=== PATIENT | male | born 1950 | race Caucasian/White ===

== ENCOUNTER 2017-11-06 09:20 | Inpatient (IN) | payer MEDICARE, OTHER ==
[2017-11-06] MEDS: BUPIVACAINE 0.5% (SDV) 30 ML, morphine SULFATE (PF) 8 MG, EPINEPHrine 0.3 MG, KETOROLAC... IRR (09:00)
[2017-11-06] MEDS ORDERED: CEFAZOLIN 1 GM INJ (09:52)
[2017-11-06] MEDS ORDERED: ROPIVACAINE 0.5 % 30 ML VIAL (09:52)
[2017-11-06] MEDS ORDERED: PROPOFOL 20 ML (09:52)
[2017-11-06] MEDS ORDERED: LIDOCAINE 2% (SDV) 5 ML INJ (09:52)
[2017-11-06] MEDS ORDERED: MIDAZOLAM 1 MG/ML 2 ML INJ ×2 (09:52→14:55)
[2017-11-06] MEDS: GABAPENTIN 300 MG CAP PO ×2 (10:32→21:46)
[2017-11-06] MEDS: DEXAMETHASONE 1 MG TAB PO (10:32)
[2017-11-06] MEDS: traMADol 50 MG TAB PO (10:32)
[2017-11-06] MEDS: LACTATED RINGER'S 1,000 ML IV* (10:33)
[2017-11-06] MEDS: VANCOMYCIN 1 GM (PMX) 250 ML IVPB (10:33)
[2017-11-06] MEDS ORDERED: TOBRAMYCIN 1.2 GM POWDER (11:14)
[2017-11-06] MEDS: BUPIVACAINE 0.5%/EPI (SDV) 30 ML INJ (11:14)
[2017-11-06] MEDS: THROMBIN 5000 UNIT VIAL (11:14)
[2017-11-06] MEDS: POLYMYXIN/BACITRACIN 1L IRRIG (11:14)
[2017-11-06] MEDS: CA CHLORIDE 10% 10 ML SYRINGE (11:15)
[2017-11-06] MEDS ORDERED: HYDROmorphONE 1 MG/5 ML IV SYRINGE IV ×3 (12:00)
[2017-11-06] MEDS ORDERED: EPHEDrine SULFATE 50 MG/5 ML SYG IV (12:00)
[2017-11-06] MEDS ORDERED: MEPERIDINE 25 MG INJ IV (12:00)
[2017-11-06] MEDS ORDERED: OXYCODONE/ACETAMINOPHEN (5/325) TAB PO ×3 (12:00→14:30)
[2017-11-06] MEDS ORDERED: LABETALOL HCL 20MG INJ IV (12:00)
[2017-11-06] MEDS ORDERED: ONDANSETRON 4 MG INJ IV ×2 (12:00→14:30)
[2017-11-06] MEDS ORDERED: hydrALAzine 20 MG INJ IV (12:00)
[2017-11-06] MEDS: TRANEXAMIC ACID 1,000 MG in DEXTROSE 5% 100 ML IVPB (13:00)
[2017-11-06] MEDS: TRANEXAMIC ACID 1,000 MG in DEXTROSE 5% 100 ML IV ×2 (14:00→15:11)
[2017-11-06] MEDS ORDERED: MAGNESIUM HYDROXIDE 30ML CUP PO (14:30)
[2017-11-06] MEDS ORDERED: KETOROLAC 15 MG INJ IV (14:30)
[2017-11-06] MEDS ORDERED: ACETAMINOPHEN 500 MG TAB PO (14:30)
[2017-11-06] MEDS ORDERED: morphine 2 MG INJ IV (14:30)
[2017-11-06] MEDS ORDERED: ZOLPIDEM 5 MG TAB PO (14:30)
[2017-11-06] MEDS ORDERED: DIPHENHYDRAMINE 50 MG INJ IV (14:30)
[2017-11-06] MEDS ORDERED: LORAZEPAM 2 MG INJ (15:02)
[2017-11-06 15:07] LABS: ADD MAN DIFF? NO
[2017-11-06 15:08] LABS: WHITE BLOOD COUNT 7.1 10^3/ul (4.8-10.8)
[2017-11-06 15:08] LABS: BASOPHILS % 0.3 % (0.0-2.0); EOSINOPHILS % 0.4 % (0.0-7.0); HEMATOCRIT 38.5 % (42.0-52.0); HEMOGLOBIN 12.6 g/dl (14.0-18.0); LYMPHOCYTES # 0.8 10^3/ul (0.8-2.9); LYMPHOCYTES % 11.8 % (15.0-51.0); MEAN CORPUSCULAR HEMOGLOBIN 28.4 pg (29.0-33.0); MEAN CORPUSCULAR HGB CONC 32.7 g/dl (32.0-37.0); MEAN CORPUSCULAR VOLUME 86.9 fl (82.0-101.0); MEAN PLATELET VOLUME 9.8 fl (7.4-10.4); MONOCYTE # 0.3 10^3/ul (0.3-0.9); MONOCYTES % 4.6 % (0.0-11.0); NEUTROPHIL # 5.9 10^3/ul (1.6-7.5); NEUTROPHILS % 82.1 % (39.0-77.0); PLATELET COUNT 209 10^3/UL (140-415); RED BLOOD COUNT 4.43 10^6/ul (4.70-6.10); RED CELL DISTRIBUTION WIDTH 13.4 % (11.5-14.5)
[2017-11-06] MEDS: DIPHENHYDRAMINE 50 MG INJ IV (15:11)
[2017-11-06] MEDS: MIDAZOLAM 1 MG/ML 2 ML INJ IV (15:14)
[2017-11-06] MEDS ORDERED: LORAZEPAM 2 MG INJ IV (15:30)
[2017-11-06] MEDS: DEXAMETHASONE 2 MG TAB PO ×2 (17:57→23:11)
[2017-11-06] MEDS: PRAMIPEXOLE 1 MG TAB PO ×2 (21:00→23:11)
[2017-11-06] MEDS: LEVOCARNITINE 330 MG TAB PO (21:00)
[2017-11-06] MEDS: SENNA/DOCUSATE NA (8.6MG/50MG) TAB PO (21:46)
[2017-11-06] MEDS: DULOXETINE 30 MG CAP DR PO (21:47)
[2017-11-07 05:09] LABS: ADD MAN DIFF? NO; BASOPHILS % 0.1 % (0.0-2.0); HEMOGLOBIN 12.4 g/dl (14.0-18.0); LYMPHOCYTES # 0.7 10^3/ul (0.8-2.9); LYMPHOCYTES % 6.3 % (15.0-51.0); MEAN CORPUSCULAR HEMOGLOBIN 28.5 pg (29.0-33.0); MEAN CORPUSCULAR HGB CONC 32.6 g/dl (32.0-37.0); MEAN CORPUSCULAR VOLUME 87.4 fl (82.0-101.0); MEAN PLATELET VOLUME 10.1 fl (7.4-10.4); MONOCYTE # 0.7 10^3/ul (0.3-0.9); MONOCYTES % 5.9 % (0.0-11.0); NEUTROPHIL # 9.6 10^3/ul (1.6-7.5); NEUTROPHILS % 87.2 % (39.0-77.0); PLATELET COUNT 230 10^3/UL (140-415); RED BLOOD COUNT 4.35 10^6/ul (4.70-6.10); RED CELL DISTRIBUTION WIDTH 13.2 % (11.5-14.5)
[2017-11-07] MEDS: DEXAMETHASONE 2 MG TAB PO ×2 (05:13→12:15)
[2017-11-07] MEDS: OXYCODONE/ACETAMINOPHEN (5/325) TAB PO ×2 (05:14→09:16)
[2017-11-07] MEDS: LEVOTHYROXINE 75 MCG TAB PO (06:42)
[2017-11-07] MEDS: morphine 2 MG INJ IV ×2 (06:45→12:15)
[2017-11-07] MEDS: SENNA/DOCUSATE NA (8.6MG/50MG) TAB PO (09:00)
[2017-11-07] MEDS: GABAPENTIN 400 MG CAP PO (09:15)
[2017-11-07] MEDS: PRAMIPEXOLE 0.25 MG TAB PO (09:15)
[2017-11-07] MEDS: ASPIRIN 81 MG TAB PO (09:15)
[2017-11-07] MEDS: DULOXETINE 30 MG CAP DR PO (09:15)
[2017-11-07] MEDS: LEVOCARNITINE 330 MG TAB PO ×2 (09:15→12:15)
== END 2017-11-07 13:30 | disposition home or self-care (01) | DRG 483 ==
LOC: REC 09:20 → MS1 16:00
PROVIDERS: Orthopaedic Surgery
PROC: 0RRJ00Z Replacement of Right Shoulder Joint with Reverse Ball and Socket Synthetic Substitute, Open Approach (ICD-10-PCS; principal; 2017-11-06 11:00)
PROC: 0RPJ0JZ Removal of Synthetic Substitute from Right Shoulder Joint, Open Approach (ICD-10-PCS; 2017-11-06 11:00)
DX: T84.028A Dislocation of other internal joint prosthesis, initial encounter (principal); E03.9 Hypothyroidism, unspecified; T84.018A Broken internal joint prosthesis, other site, initial encounter; Y83.2 Surgical operation with anastomosis, bypass or graft as the cause of abnormal reaction of the patient, or of later complication, without mention of misadventure at the time of the procedure; Y92.89 Other specified places as the place of occurrence of the external cause
CPT/HCPCS: 73030-RT; 85025; 86999; 87070; 88300; 88304

== ENCOUNTER 2018-01-29 05:35 | Inpatient (IN) | payer MEDICARE, OTHER ==
[2018-01-29] MEDS: TRANEXAMIC ACID 1,000 MG in DEXTROSE 5% 100 ML IVPB ×2 (06:00→08:30)
[2018-01-29] MEDS: VANCOMYCIN 1 GM (PMX) 250 ML IVPB (06:06)
[2018-01-29] MEDS: DEXAMETHASONE 1 MG TAB PO (06:07)
[2018-01-29] MEDS: GABAPENTIN 300 MG CAP PO ×2 (06:07→21:26)
[2018-01-29] MEDS ORDERED: THROMBIN 5000 UNIT VIAL (06:44)
[2018-01-29] MEDS ORDERED: CA CHLORIDE 10% 10 ML SYRINGE (06:44)
[2018-01-29] MEDS ORDERED: POLYMYXIN/BACITRACIN 1L IRRIG (06:44)
[2018-01-29] MEDS ORDERED: KETAMINE (50 MG/ML) 10 ML VIAL (06:59)
[2018-01-29] MEDS ORDERED: MIDAZOLAM 1 MG/ML 2 ML INJ (06:59)
[2018-01-29] MEDS ORDERED: FENTAnyl 50 MCG/ML VIAL (06:59)
[2018-01-29] MEDS ORDERED: LABETALOL HCL 20MG INJ IV (07:00)
[2018-01-29] MEDS ORDERED: ONDANSETRON 4 MG INJ IV ×2 (07:00→09:30)
[2018-01-29] MEDS ORDERED: LEVALBUTEROL (NEB) 1.25 MG/0.5 ML AMP HHN (07:00)
[2018-01-29] MEDS ORDERED: MEPERIDINE 25 MG INJ IV (07:00)
[2018-01-29] MEDS ORDERED: ONDANSETRON 4 MG INJ (07:00)
[2018-01-29] MEDS ORDERED: IPRATROPIUM (NEB) 0.5 MG/2.5 ML AMP HHN (07:00)
[2018-01-29] MEDS ORDERED: hydrALAzine 20 MG INJ IV (07:00)
[2018-01-29] MEDS ORDERED: DIPHENHYDRAMINE 50 MG INJ IV (07:00)
[2018-01-29] MEDS ORDERED: METOCLOPRAMIDE 10 MG INJ (07:00)
[2018-01-29] MEDS ORDERED: PROPOFOL 20 ML (07:00)
[2018-01-29] MEDS ORDERED: SUCCINYLCHOLINE CHLORIDE 100 MG/5 ML SYG IV (07:00)
[2018-01-29] MEDS ORDERED: DEXAMETHASONE 4 MG/ML 1 ML INJ (07:00)
[2018-01-29] MEDS ORDERED: SUGAMMADEX SODIUM 200 MG/2 ML VIAL IV (07:00)
[2018-01-29] MEDS ORDERED: ROCURONIUM 50 MG INJ (07:00)
[2018-01-29] MEDS ORDERED: HYDROmorphONE 1 MG/5 ML IV SYRINGE IV ×3 (07:00)
[2018-01-29] MEDS ORDERED: KETOROLAC 30 MG INJ IV (07:00)
[2018-01-29] MEDS ORDERED: FENTAnyl 50 MCG/ML VIAL IV ×2 (07:00)
[2018-01-29] MEDS ORDERED: LIDOCAINE 2% (SDV) 5 ML INJ (07:00)
[2018-01-29] MEDS ORDERED: ROPIVACAINE 0.5 % 30 ML VIAL (07:05)
[2018-01-29] MEDS ORDERED: EPINEPHrine 1 MG INJ (07:06)
[2018-01-29] MEDS ORDERED: LABETALOL HCL 20MG INJ (07:31)
[2018-01-29] MEDS: BUPIVACAINE 0.5% (SDV) 30 ML, morphine SULFATE (PF) 8 MG, EPINEPHrine 0.3 MG, KETOROLAC... IRR (07:41)
[2018-01-29] MEDS: POLYMYXIN/BACITRACIN 1L IRRIG IRR (07:41)
[2018-01-29] MEDS ORDERED: OXYCODONE/ACETAMINOPHEN (5/325) TAB PO (09:30)
[2018-01-29] MEDS ORDERED: MAGNESIUM HYDROXIDE 30ML CUP PO (09:30)
[2018-01-29] MEDS ORDERED: morphine 2 MG INJ IV (09:30)
[2018-01-29] MEDS ORDERED: ACETAMINOPHEN 500 MG TAB PO (09:30)
[2018-01-29] MEDS ORDERED: KETOROLAC 15 MG INJ IV (09:30)
[2018-01-29] MEDS ORDERED: ZOLPIDEM 5 MG TAB PO (09:30)
[2018-01-29] MEDS: TRANEXAMIC ACID 1,000 MG in DEXTROSE 5% 100 ML IV (10:03)
[2018-01-29] MEDS: DEXAMETHASONE 2 MG TAB PO ×2 (12:23→17:59)
[2018-01-29] MEDS: DIPHENHYDRAMINE 50 MG INJ IV (16:29)
[2018-01-29] MEDS: VANCOMYCIN 500MG/NS (PMX) 100 ML IVPB (17:59)
[2018-01-29] MEDS ORDERED: PRAMIPEXOLE 0.25 MG TAB PO (21:00)
[2018-01-29] MEDS: SENNA/DOCUSATE NA (8.6MG/50MG) TAB PO (21:26)
[2018-01-29] MEDS: GABAPENTIN 400 MG CAP PO (21:26)
[2018-01-29] MEDS: PRAMIPEXOLE 1 MG TAB PO (22:12)
[2018-01-30] MEDS: DEXAMETHASONE 1 MG TAB PO ×2 (00:52→05:29)
[2018-01-30] MEDS: OXYCODONE/ACETAMINOPHEN (5/325) TAB PO (03:20)
[2018-01-30] MEDS: VANCOMYCIN 500MG/NS (PMX) 100 ML IVPB (05:29)
[2018-01-30] MEDS: morphine 2 MG INJ IV ×3 (05:39→15:41)
[2018-01-30] MEDS: LEVOTHYROXINE 75 MCG TAB PO (06:43)
[2018-01-30] MEDS: PRAMIPEXOLE 1 MG TAB PO ×2 (08:43→15:06)
[2018-01-30] MEDS: GABAPENTIN 400 MG CAP PO (08:43)
[2018-01-30] MEDS: ASPIRIN 81 MG TAB PO (08:43)
[2018-01-30] MEDS: SENNA/DOCUSATE NA (8.6MG/50MG) TAB PO (09:00)
== END 2018-01-30 16:20 | disposition home or self-care (01) | DRG 483 ==
LOC: REC 05:35 → MS1 11:07
PROC: 0RRK00Z Replacement of Left Shoulder Joint with Reverse Ball and Socket Synthetic Substitute, Open Approach (ICD-10-PCS; principal; 2018-01-29 07:00)
PROC: 0PBB0ZZ Excision of Left Clavicle, Open Approach (ICD-10-PCS; 2018-01-29 07:00)
PROC: 0LS40ZZ Reposition Left Upper Arm Tendon, Open Approach (ICD-10-PCS; 2018-01-29 07:00)
DX: M19.212 Secondary osteoarthritis, left shoulder (principal); M19.012 Primary osteoarthritis, left shoulder; M75.102 Unspecified rotator cuff tear or rupture of left shoulder, not specified as traumatic; I10 Essential (primary) hypertension; R39.198 Other difficulties with micturition
CPT/HCPCS: 73030; 86999; 88304; 88311; 97166

== ENCOUNTER 2018-05-07 10:11 | Inpatient (IN) | payer MEDICARE, OTHER ==
[~2018-05-07 10:11] MED LIST: ROCURONIUM 50 MG INJ
[2018-05-07] MEDS: GABAPENTIN 300 MG CAP PO ×2 (10:35→21:56)
[2018-05-07] MEDS: DEXAMETHASONE 1 MG TAB PO (10:36)
[2018-05-07] MEDS: VANCOMYCIN 1 GM (PMX) 250 ML IVPB ×2 (10:36→12:45)
[2018-05-07] MEDS: TRANEXAMIC ACID 1,000 MG in DEXTROSE 5% 100 ML IVPB (11:00)
[2018-05-07] MEDS ORDERED: BUPIVACAINE 0.5% (SDV) 30 ML, morphine SULFATE (PF) 8 MG, EPINEPHrine 0.3 MG, KETOROLAC... IRR (12:30)
[2018-05-07] MEDS ORDERED: ROPIVACAINE 0.5 % 30 ML VIAL (13:01)
[2018-05-07] MEDS ORDERED: MIDAZOLAM 1 MG/ML 2 ML INJ (13:01)
[2018-05-07] MEDS: TOBRAMYCIN 1.2 GM POWDER (14:13)
[2018-05-07] MEDS: VANCOMYCIN 1 GM INJ (14:13)
[2018-05-07] MEDS: POLYMYXIN/BACITRACIN 1L IRRIG (14:13)
[2018-05-07] MEDS ORDERED: PROPOFOL 20 ML (15:04)
[2018-05-07] MEDS ORDERED: LIDOCAINE 2% (SDV) 5 ML INJ (15:04)
[2018-05-07] MEDS ORDERED: ETOMIDATE 20 MG INJ (15:04)
[2018-05-07] MEDS ORDERED: ONDANSETRON 4 MG INJ (15:07)
[2018-05-07] MEDS ORDERED: ZOLPIDEM 5 MG TAB PO (15:30)
[2018-05-07] MEDS ORDERED: oxyCODONE 5 MG TAB PO (15:30)
[2018-05-07] MEDS ORDERED: HYDROmorphONE 1 MG/5 ML IV SYRINGE IV ×2 (15:30)
[2018-05-07] MEDS ORDERED: FENTAnyl 50 MCG/ML VIAL IV (15:30)
[2018-05-07] MEDS ORDERED: DIPHENHYDRAMINE 50 MG INJ IV ×2 (15:30)
[2018-05-07] MEDS ORDERED: NACL 0.9% 3 ML SYG IV (15:30)
[2018-05-07] MEDS ORDERED: MAGNESIUM HYDROXIDE 30ML CUP PO (15:30)
[2018-05-07] MEDS ORDERED: LOPERAMIDE 2 MG CAP PO (15:30)
[2018-05-07] MEDS ORDERED: METOCLOPRAMIDE 10 MG INJ IV (15:30)
[2018-05-07] MEDS ORDERED: ONDANSETRON 4 MG INJ IV ×2 (15:30)
[2018-05-07] MEDS ORDERED: NALOXONE (0.4 MG/ML) INJ IV (15:30)
[2018-05-07] MEDS ORDERED: MEPERIDINE 25 MG INJ IV (15:30)
[2018-05-07 16:00] LABS: ADD MAN DIFF? NO
[2018-05-07 16:02] LABS: ABNORMAL IP MESSAGE 1; BASOPHILS % 0.2 % (0.0-2.0); EOSINOPHILS # 0.1 10^3/ul (0.0-0.5); HEMATOCRIT 28.2 % (42.0-52.0); HEMOGLOBIN 8.3 g/dl (14.0-18.0); LYMPHOCYTES # 0.5 10^3/ul (0.8-2.9); LYMPHOCYTES % 10.1 % (15.0-51.0); MEAN CORPUSCULAR HEMOGLOBIN 24.4 pg (29.0-33.0); MEAN CORPUSCULAR HGB CONC 29.4 g/dl (32.0-37.0); MEAN CORPUSCULAR VOLUME 82.9 fl (82.0-101.0); MEAN PLATELET VOLUME 9.1 fl (7.4-10.4); MONOCYTE # 0.2 10^3/ul (0.3-0.9); MONOCYTES % 3.9 % (0.0-11.0); NEUTROPHIL # 4.1 10^3/ul (1.6-7.5); NEUTROPHILS % 84.4 % (39.0-77.0); PLATELET COUNT 252 10^3/UL (140-415); POSITIVE DIFF @See below; RED CELL DISTRIBUTION WIDTH 15.1 % (11.5-14.5)
[2018-05-07 16:02] LABS: WHITE BLOOD COUNT 4.8 10^3/ul (4.8-10.8)
[2018-05-07 16:18] LABS: HOLD TRANSMISSIONS 1
[2018-05-07] MEDS: TRANEXAMIC ACID 1GM/100ML(PMX) 100 ML IVPB (16:21)
[2018-05-07] MEDS: HYDROmorphONE 1 MG/ML SYG IV ×2 (17:59→23:59)
[2018-05-07] MEDS: ACETAMINOPHEN 500 MG TAB PO ×2 (18:00→23:57)
[2018-05-07] MEDS: DEXAMETHASONE 2 MG TAB PO ×2 (18:00→23:57)
[2018-05-07] MEDS: LORATADINE 10 MG TAB PO (18:39)
[2018-05-07] MEDS: KETOROLAC 15 MG INJ IV (18:42)
[2018-05-07] MEDS: oxyCODONE 5 MG TAB PO ×2 (18:49→22:51)
[2018-05-07] MEDS ORDERED: DOXEPIN 50 MG CAP PO (21:00)
[2018-05-07] MEDS: PRAMIPEXOLE 1 MG TAB PO (21:56)
[2018-05-07] MEDS: DOXEPIN 25 MG CAP PO (21:56)
[2018-05-07] MEDS: SENNA/DOCUSATE NA (8.6MG/50MG) TAB PO (21:57)
[2018-05-07] MEDS: GABAPENTIN 400 MG CAP PO (21:57)
[2018-05-08] MEDS: VANCOMYCIN 500 MG (PMX) 100 ML IVPB ×2 (02:29→13:54)
[2018-05-08] MEDS: oxyCODONE 5 MG TAB PO ×4 (02:29→23:24)
[2018-05-08] MEDS: DEXAMETHASONE 2 MG TAB PO ×2 (05:22→13:16)
[2018-05-08] MEDS: ACETAMINOPHEN 500 MG TAB PO ×3 (05:22→18:16)
[2018-05-08] MEDS: LEVOTHYROXINE 75 MCG TAB PO (06:42)
[2018-05-08 08:32] LABS: ADD MAN DIFF? NO
[2018-05-08] MEDS: SENNA/DOCUSATE NA (8.6MG/50MG) TAB PO ×2 (08:36→21:00)
[2018-05-08] MEDS: LORATADINE 10 MG TAB PO (08:37)
[2018-05-08] MEDS: PRAMIPEXOLE 0.25 MG TAB PO (08:37)
[2018-05-08 08:45] LABS: ABNORMAL IP MESSAGE 1; EOSINOPHILS % 0.2 % (0.0-7.0); HEMOGLOBIN 8.3 g/dl (14.0-18.0); LYMPHOCYTES # 0.4 10^3/ul (0.8-2.9); LYMPHOCYTES % 7.6 % (15.0-51.0); MEAN CORPUSCULAR HEMOGLOBIN 24.6 pg (29.0-33.0); MEAN CORPUSCULAR HGB CONC 29.6 g/dl (32.0-37.0); MEAN CORPUSCULAR VOLUME 82.8 fl (82.0-101.0); MEAN PLATELET VOLUME 9.9 fl (7.4-10.4); MONOCYTE # 0.2 10^3/ul (0.3-0.9); MONOCYTES % 3.4 % (0.0-11.0); NEUTROPHIL # 4.6 10^3/ul (1.6-7.5); NEUTROPHILS % 88.2 % (39.0-77.0); PLATELET COUNT 280 10^3/UL (140-415); POSITIVE DIFF @See below; RED BLOOD COUNT 3.38 10^6/ul (4.70-6.10); RED CELL DISTRIBUTION WIDTH 14.9 % (11.5-14.5)
[2018-05-08 08:45] LABS: WHITE BLOOD COUNT 5.2 10^3/ul (4.8-10.8)
[2018-05-08] MEDS: KETOROLAC 15 MG INJ IV (09:52)
[2018-05-08] MEDS: HYDROmorphONE 1 MG/ML SYG IV (18:13)
[2018-05-08] MEDS: GABAPENTIN 300 MG CAP PO (20:59)
[2018-05-08] MEDS: GABAPENTIN 400 MG CAP PO (20:59)
[2018-05-08] MEDS: DOXEPIN 25 MG CAP PO (21:00)
[2018-05-08] MEDS: PRAMIPEXOLE 1 MG TAB PO (21:10)
[2018-05-09] MEDS: ACETAMINOPHEN 500 MG TAB PO ×4 (00:09→17:32)
[2018-05-09] MEDS: HYDROmorphONE 1 MG/ML SYG IV (00:13)
[2018-05-09] MEDS: oxyCODONE 5 MG TAB PO ×4 (04:34→21:42)
[2018-05-09] MEDS: LEVOTHYROXINE 75 MCG TAB PO (04:34)
[2018-05-09] MEDS: LORATADINE 10 MG TAB PO (08:39)
[2018-05-09] MEDS: SENNA/DOCUSATE NA (8.6MG/50MG) TAB PO ×2 (09:00→20:38)
[2018-05-09] MEDS: PRAMIPEXOLE 0.25 MG TAB PO (10:52)
[2018-05-09] MEDS ORDERED: VANCOMYCIN IV PER PHARMACY XX (17:30)
[2018-05-09 18:25] LABS: ALBUMIN 3.1 g/dl (3.3-4.9); ANION GAP 4 (5-13); BLOOD UREA NITROGEN 14 mg/dl (7-20); CALCIUM 9.1 mg/dl (8.4-10.2); CARBON DIOXIDE 30 mmol/L (21-31); CHLORIDE 106 mmol/L (97-110); CREATININE 0.83 mg/dl (0.61-1.24); GLUCOSE 92 mg/dl (70-220); PHOSPHORUS 3.6 mg/dl (2.5-4.9); SODIUM 140 mmol/L (135-144)
[2018-05-09 18:31] LABS: VANCOMYCIN,RANDOM < 5.0 ug/ml
[2018-05-09] MEDS: DOXEPIN 25 MG CAP PO (20:37)
[2018-05-09] MEDS: ERTAPENEM SODIUM 1 GM in SOD CHLORIDE 0.9% 100 ML IVPB (20:37)
[2018-05-09] MEDS: GABAPENTIN 300 MG CAP PO (20:38)
[2018-05-09] MEDS: GABAPENTIN 400 MG CAP PO (20:38)
[2018-05-09] MEDS: PRAMIPEXOLE 1 MG TAB PO (20:38)
[2018-05-09] MEDS: VANCOMYCIN HCL 2 GM in SOD CHLORIDE 0.9% 500 ML IVPB (21:37)
[2018-05-10] MEDS: ACETAMINOPHEN 500 MG TAB PO ×4 (00:25→18:00)
[2018-05-10] MEDS: LEVOTHYROXINE 75 MCG TAB PO (06:36)
[2018-05-10] MEDS: ALBUTEROL 0.083% (NEB) 2.5 MG/3 ML AMP HHN (09:01)
[2018-05-10] MEDS: LIDOCAINE 1% (MPF) 5 ML VIAL SC (09:01)
[2018-05-10] MEDS: VANCOMYCIN HCL 1.75 GM in SOD CHLORIDE 0.9% 500 ML IVPB ×2 (09:02→22:39)
[2018-05-10] MEDS: LORATADINE 10 MG TAB PO (09:03)
[2018-05-10] MEDS: PRAMIPEXOLE 0.25 MG TAB PO (09:04)
[2018-05-10] MEDS: SENNA/DOCUSATE NA (8.6MG/50MG) TAB PO ×2 (09:04→21:27)
[2018-05-10] MEDS: oxyCODONE 5 MG TAB PO ×2 (11:16→18:11)
[2018-05-10] MEDS: hydrALAzine 20 MG INJ IV (17:19)
[2018-05-10] MEDS: GABAPENTIN 300 MG CAP PO (21:26)
[2018-05-10] MEDS: DOXEPIN 25 MG CAP PO (21:27)
[2018-05-10] MEDS: GABAPENTIN 400 MG CAP PO (21:27)
[2018-05-10] MEDS: ERTAPENEM SODIUM 1 GM in SOD CHLORIDE 0.9% 100 ML IVPB (21:48)
[2018-05-10] MEDS: PRAMIPEXOLE 1 MG TAB PO (21:48)
[2018-05-11] MEDS: oxyCODONE 5 MG TAB PO ×2 (02:10→16:00)
[2018-05-11] MEDS: HYDROmorphONE 1 MG/ML SYG IV (04:49)
[2018-05-11] MEDS: LEVOTHYROXINE 75 MCG TAB PO (05:42)
[2018-05-11] MEDS: ACETAMINOPHEN 500 MG TAB PO ×3 (05:43→11:43)
[2018-05-11] MEDS ORDERED: hydrALAzine 20 MG INJ IV (07:00)
[2018-05-11 08:16] LABS: CREATININE 0.74 mg/dl (0.61-1.24)
[2018-05-11 08:16] LABS: BLOOD UREA NITROGEN 13 mg/dl (7-20)
[2018-05-11 08:18] LABS: VANCOMYCIN,TROUGH 18.9 ug/ml (10.0-20.0)
[2018-05-11] MEDS: LORATADINE 10 MG TAB PO (09:20)
[2018-05-11] MEDS: SENNA/DOCUSATE NA (8.6MG/50MG) TAB PO (09:20)
[2018-05-11] MEDS: PRAMIPEXOLE 0.25 MG TAB PO (09:21)
[2018-05-11] MEDS: VANCOMYCIN HCL 1.5 GM in SOD CHLORIDE 0.9% 250 ML IVPB (11:36)
== END 2018-05-11 16:57 | disposition home health service (06) | DRG 496 ==
LOC: REC 10:11 → MS1 17:35
PROVIDERS: Orthopaedic Surgery
PROC: 0RPJ0JZ Removal of Synthetic Substitute from Right Shoulder Joint, Open Approach (ICD-10-PCS; principal; 2018-05-07 13:43)
PROC: 0RHJ08Z Insertion of Spacer into Right Shoulder Joint, Open Approach (ICD-10-PCS; 2018-05-07 13:43)
PROC: 02HV33Z Insertion of Infusion Device into Superior Vena Cava, Percutaneous Approach (ICD-10-PCS; 2018-05-07 13:43)
PROC: B548ZZA Ultrasonography of Superior Vena Cava, Guidance (ICD-10-PCS; 2018-05-07 13:43)
DX: T84.028A Dislocation of other internal joint prosthesis, initial encounter (principal); Z68.42 Body mass index [BMI] 45.0-49.9, adult; T84.59XA Infection and inflammatory reaction due to other internal joint prosthesis, initial encounter; E66.01 Morbid (severe) obesity due to excess calories; J44.9 Chronic obstructive pulmonary disease, unspecified; E11.9 Type 2 diabetes mellitus without complications; B96.20 Unspecified Escherichia coli [E. coli] as the cause of diseases classified elsewhere; E03.9 Hypothyroidism, unspecified; E78.5 Hyperlipidemia, unspecified; I10 Essential (primary) hypertension; G43.909 Migraine, unspecified, not intractable, without status migrainosus; F32.9 Major depressive disorder, single episode, unspecified; Z96.653 Presence of artificial knee joint, bilateral; Z96.611 Presence of right artificial shoulder joint; Y83.8 Other surgical procedures as the cause of abnormal reaction of the patient, or of later complication, without mention of misadventure at the time of the procedure; Y92.019 Unspecified place in single-family (private) house as the place of occurrence of the external cause
CPT/HCPCS: 36569; 71045; 73030-RT; 76937; 80069; 80202; 82565; 84520; 85025; 86999; 87070; 87075; 87086; 88304